=== PATIENT | female | born 1970 | race Caucasian/White ===

== ENCOUNTER 2019-03-26 06:56 | Emergency (ER) | payer MEDICAID, OTHER ==
[~2019-03-26] VITALS: Ht 162.6 cm; Wt 58.1 kg
[2019-03-26 06:59] VITALS: BP 135/70; PULSE 78; RESP 15; Ht 162.6 cm; Wt 58.1 kg
[2019-03-26] MEDS ORDERED: HC30CR25 TOP (07:18)
[2019-03-26] MEDS ORDERED: BEN25 PO (07:18)
--- NOTE | 2019-03-26 08:55 | ERD ---
ER Documentation Chief Complaint Chief Complaint RASH ON FACE X 6 DAYS HPI 48-year-old female presenting with a rash on her face for the last 6 days. Patient has been using Purell on her face to alleviate the itching but is causing it to worsen. She is never had this before and denies any fevers. Denies cough or runny nose. Denies any troubles breathing or facial swelling. States her rash is only on her face and chin is very pruritic. Denies any pain. Denies medical problems. NKDA. Surgical history . Social history denies ROS All systems reviewed and are negative except as per history of present illness. Medications Home Meds Active Scripts Hydrocortisone* Topical (Hydrocortisone* Topical) 2.5%-28.3 Gm Cream..g., 1 APPLIC TOP BID, #1 TUB Prov:CHELSEA CARRERO PA-C 03/26/19 Diphenhydramine Hcl* (Benadryl*) 25 Mg Cap, 25 MG PO Q6, #30 CAP Prov:CHELSEA CARRERO PA-C 03/26/19 Allergies Allergies: Coded Allergies: No Known Allergy (Unverified , 03/26/19) PMhx/Soc Medical and Surgical Hx: pt denies Medical Hx, pt denies Surgical Hx Hx Alcohol Use: No Hx Substance Use: No Hx Tobacco Use: No FmHx Family History: No diabetes, No coronary disease, No other Physical Exam Vitals Vital Signs Date Temp Pulse Resp B/P (MAP) Pulse Ox O2 O2 Flow FiO2 Time Delivery Rate 03/26/19 97.7 78 15 135/70 98 06:59 (91) Physical Exam GENERAL: The patient is well-appearing, well-nourished, in no acute distress HEENT: Atraumatic. Conjunctivae are pink. Pupils equal, round, and reactive to light. There is no scleral icterus. Tympanic membranes clear bilaterally. Oropharynx clear. CHEST: Clear to auscultation bilaterally. There are no rales, wheezes or rhonchi. HEART: Regular rate and rhythm. No murmurs, clicks, rubs or gallops SKIN: Erythematous wheals noted on face with no vesicles or pustules. No excoriations. No induration Procedures/MDM MDM: 48-year-old female presenting with rash on face. Patient likely has contact dermatitis that has been worsened with use of alcohol on her face for the last 6 days. Patient will be treated with supportive medications and recommended to avoid using Purell. Patient is discharged and recommended to follow-up with primary care. Patient is discharged with strict ER precautions. All questions answered at discharge Departure Diagnosis: Primary Impression: Rash Condition: Stable Patient Instructions: Self-Care for Skin Rashes Referrals: [facility] YOU HAVE RECEIVED A MEDICAL SCREENING EXAM AND THE RESULTS INDICATE THAT YOU DO NOT HAVE A CONDITION THAT REQUIRES URGENT TREATMENT IN THE EMERGENCY DEPARTMENT. FURTHER EVALUATION AND TREATMENT OF YOUR CONDITION CAN WAIT UNTIL YOU ARE SEEN IN YOUR DOCTORS OFFICE WITHIN THE NEXT 1-2 DAYS. IT IS YOUR RESPONSIBILITY TO MAKE AN APPOINTMENT FOR FOLOW-UP CARE. IF YOU HAVE A PRIMARY DOCTOR --you should call your primary doctor and schedule an appointment IF YOU DO NOT HAVE A PRIMARY DOCTOR YOU CAN CALL OUR PHYSICIAN REFERRAL HOTLINE AT IF YOU CAN NOT AFFORD TO SEE A PHYSICIAN YOU CAN CHOSE FROM THE FOLLOWING [facility] [address] [facility] [address] [facility] [address] [facility] [address] [facility] [address] [facility] [facility]. [address] Additional Instructions: FOLLOW UP WITH YOUR PRIMARY CARE PHYSICIAN TOMORROW.Return to this facility if you are not improving as expected. CHELSEA CARRERO PA-C Mar 26, 2019 08:55
== END 2019-03-26 07:31 | disposition home or self-care (01) ==
LOC: FTE 06:56
DX: R21 Rash and other nonspecific skin eruption (principal)
CPT/HCPCS: 99282

== ENCOUNTER 2019-03-30 11:37 | Emergency (ER) | payer BC, MEDICAID ==
[~2019-03-30] VITALS: Ht 157.5 cm; Wt 62.0 kg
[~2019-03-30 11:37] MED LIST: ACET500C5 PO; BEN25 PO; HC30CR25 TOP; IBUP800T48 PO; LEVO5TAB28 PO; LORA10CA PO; PRED20TA PO
[2019-03-30 11:42] VITALS: BP 138/63; PULSE 87; RESP 18; Ht 157.5 cm; Wt 62.0 kg
--- NOTE | 2019-03-30 12:32 | ERD ---
ER Documentation Chief Complaint Chief Complaint RASH,ITCHING HPI 48-year-old female is here with itchy rash. She was seen here on Tuesday for the same and given Benadryl and topical steroids which she states did not help. She thinks is secondary to seasonal allergies when she goes outside it is worse. She has no lip or tongue swelling. No difficulty breathing. No fevers. No chest pain palpitations or shortness of breath. ROS All systems reviewed and are negative except as per history of present illness. Medications Home Meds Active Scripts Loratadine* (Claritin*) 10 Mg Capsule, 10 MG PO DAILY, #20 CAP Prov:KAVITA CARBONE PA-C 03/30/19 Prednisone* (Prednisone*) 20 Mg Tab, 60 MG PO DAILY for 5 Days, TAB Prov:KAVITA CARBONE PA-C 03/30/19 Hydrocortisone* Topical (Hydrocortisone* Topical) 2.5%-28.3 Gm Cream..g., 1 APPLIC TOP BID, #1 TUB Prov:CHELSEA CARRERO PA-C 03/26/19 Diphenhydramine Hcl* (Benadryl*) 25 Mg Cap, 25 MG PO Q6, #30 CAP Prov:CHELSEA CARRERO PA-C 03/26/19 Allergies Allergies: Coded Allergies: No Known Allergy (Unverified , 03/26/19) PMhx/Soc Hx Alcohol Use: No Hx Substance Use: No Hx Tobacco Use: No FmHx Family History: No diabetes Physical Exam Vitals Vital Signs Date Temp Pulse Resp B/P (MAP) Pulse Ox O2 O2 Flow FiO2 Time Delivery Rate 03/30/19 97.7 87 18 138/63 99 11:42 (88) Physical Exam Const: No acute distress Head: Atraumatic Eyes: Normal Conjunctiva ENT: Normal External Ears, Nose and Mouth. No lip or tongue swelling Neck: Full range of motion. No meningismus. Resp: Clear to auscultation bilaterally Cardio: Regular rate and rhythm, no murmurs Skin: Scant hives on anterior neck wall and small flesh-colored bumps on her cheeks Procedures/MDM Here for rash. Does appear allergic in nature. Prescription for Claritin given as well as short course of prednisone. Patient counseled regarding my di agnostic impression and care plan. Prior to discharge all questions answered. Pt agrees with treatment plan and understands strict return precautions. Pt is instructed to follow up with primary care provider within 24-48 hours. Precautionary instructions provided including instructions to return to the ER if not improving or for any worsening or changing symptoms or concerns. Departure Diagnosis: Primary Impression: Rash Condition: Stable Patient Instructions: Self-Care for Skin Rashes Additional Instructions: Llame al doctor MAANA y mariana kallie MERT PARA DENTRO DE 1-2 HAQ.Dgale a la secretaria que nosotros le instruimos hacer esta mert.Avise o llame si candelaria condicin se empeora antes de la mert. Regresa aqui si peor o no mejor. KAVITA CARBONE PA-C Mar 30, 2019 12:32
== END 2019-03-30 12:34 | disposition home or self-care (01) ==
LOC: E/R 11:37
DX: R21 Rash and other nonspecific skin eruption (principal)
CPT/HCPCS: 99283

== ENCOUNTER 2019-04-04 07:32 | Emergency (ER) | payer BC ==
[~2019-04-04] VITALS: Wt 50.0 kg
[2019-04-04 07:34] VITALS: BP 150/84; PULSE 98; RESP 18
[2019-04-04] MEDS ORDERED: IBUPROFEN 800 MG TAB PO ONE (08:00)
[2019-04-04] MEDS ORDERED: DEXAMETHASONE 10 MG/ML 1 ML INJ IM ONE (08:00)
--- NOTE | 2019-04-04 15:44 | ERD ---
ER Documentation Chief Complaint Chief Complaint sore throat HPI 48-year-old female presenting with a sore throat and tactile fevers. Patient took Tylenol yesterday but no medications today. She has some mild sore throat with no runny nose and no cough. Occasional ear pain. No vomiting and no nausea. She has decreased appetite. Denies any other medical problems. NKDA. Surgical history . Social history denies ROS All systems reviewed and are negative except as per history of present illness. Medications Home Meds Active Scripts Acetaminophen* (Tylophen*) 500 Mg Capsule, 2 CAP PO Q8H PRN for PAIN AND OR ELEVATED TEMP, #20 CAP Prov:CHELSEA CARRERO PA-C 04/04/19 Ibuprofen* (Motrin*) 800 Mg Tab, 800 MG PO Q6, #30 TAB Prov:CHELSEA CARRERO PA-C 04/04/19 Levocetirizine Dihydrochloride (Xyzal) 5 Mg Tablet, 5 MG PO QPM, #10 TAB Prov:CHELSEA CARRERO PA-C 04/04/19 Hydrocortisone* Topical (Hydrocortisone* Topical) 2.5%-28.3 Gm Cream..g., 1 APPLIC TOP BID, #1 TUB Prov:CHELSEA CARRERO PA-C 04/04/19 Loratadine* (Claritin*) 10 Mg Capsule, 10 MG PO DAILY, #20 CAP Prov:KAVITA CARBONE PA-C 03/30/19 Prednisone* (Prednisone*) 20 Mg Tab, 60 MG PO DAILY for 5 Days, TAB Prov:KAVITA CARBONE PA-C 03/30/19 Hydrocortisone* Topical (Hydrocortisone* Topical) 2.5%-28.3 Gm Cream..g., 1 APPLIC TOP BID, #1 TUB Prov:CHELSEA CARRERO PA-C 03/26/19 Diphenhydramine Hcl* (Benadryl*) 25 Mg Cap, 25 MG PO Q6, #30 CAP Prov:CHELSEA CARRERO PA-C 03/26/19 Allergies Allergies: Coded Allergies: No Known Allergy (Unverified , 04/04/19) PMhx/Soc Medical and Surgical Hx: pt denies Medical Hx, pt denies Surgical Hx Hx Alcohol Use: No Hx Substance Use: No Hx Tobacco Use: No Smoking Status: Never smoker FmHx Family History: No diabetes, No coronary disease, No other Physical Exam Vitals Vital Signs Date Temp Pulse Resp B/P (MAP) Pulse Ox O2 O2 Flow FiO2 Time Delivery Rate 04/04/19 98.8 98 18 150/84 99 07:34 (106) Physical Exam GENERAL: The patient is well-appearing, well-nourished, in no acute distress HEENT: Atraumatic. Conjunctivae are pink. Pupils equal, round, and reactive to light. There is no scleral icterus. Tympanic membranes clear bilaterally. Oropharynx clear. NECK: C-spine is soft and supple. There is no meningismus. There is no c ervical lymphadenopathy. CHEST: Clear to auscultation bilaterally. There are no rales, wheezes or rhonchi. HEART: Regular rate and rhythm. No murmurs, clicks, rubs or gallops. No S3 or S4. Results 24 hrs Current Medications Medications Dose Sig/Michelle Start Time Status Last (Trade) Ordered Route PRN Stop Time Admin Dose Reason Admin 10 mg ONCE ONCE 04/04/19 DC 04/04/19 Dexamethasone IM 08:00 04/04/19 07:52 (Decadron) 08:01 Ibuprofen 800 mg ONCE ONCE 04/04/19 DC 04/04/19 (Motrin) PO 08:00 04/04/19 07:52 08:01 Procedures/MDM ER course: Decadron and Tylenol given in the ED. MDM: 48-year-old female presenting with URI symptoms. Patient likely has seasonal allergies causing her to have nasal drip and sore throat. I have low suspicion for intracranial hemorrhage or neuro deficit. I have low suspicion for bacterial infection I do not feel antibiotics are indicated. Patient is discharged with strict ER precautions and told to follow-up with primary care within 1 to 2 days for close evaluation. Patient is told symptoms change or worsen to return immediately to the ER. All questions answered at discharge Departure Diagnosis: Primary Impression: Seasonal allergies Additional Impression: Sore throat Condition: Stable Patient Instructions: Self-Care for Sore Throats, Seasonal Allergy Additional Instructions: FOLLOW UP WITH YOUR PRIMARY CARE PHYSICIAN TOMORROW.Return to this facility if you are not improving as expected. CHELSEA CARRERO PA-C Apr 04, 2019 15:44
== END 2019-04-04 08:20 | disposition home or self-care (01) ==
LOC: FTE 07:32
DX: J02.9 Acute pharyngitis, unspecified (principal); J30.2 Other seasonal allergic rhinitis
CPT/HCPCS: 96372; 99284; J1100; Z7610